=== PATIENT | female | born 1985 | race African-American/Black ===

== ENCOUNTER 2022-09-16 14:43 | Emergency (ER) | payer BC, OTHER ==
[2022-09-16 14:53] VITALS: RESP 18; BMI 34.7
[2022-09-16] MEDS ORDERED: CEFTAZIDIME PENTAHYDRATE 2 GM in DEXTROSE 5%-WATER 100 ML IVPB ONE (17:04)
[2022-09-16] MEDS ORDERED: VANCOMYCIN 1 GM in D5W (PRE-DOCKED) 1,000 MG/250 ML (RESTRICTED TO ID ONLY IVPB ONE (17:05)
[2022-09-16] MEDS ORDERED: cefTAZidime PENTAHYDRATE 2 GM VIAL (RESTRICTED TO ID) ONE (17:07)
[2022-09-16 17:26] LABS: BASO % 0.4 % (0-2.0); EOS % 0.8 % (0-4.5); HEMATOCRIT 36.7 % (32.4-45.2); HEMOGLOBIN 12.1 GM/dL (10.7-15.3); LYMPH % 39.4 % (8-40); MCH 27.9 pg (25.7-33.7); MEAN CELL VOLUME 84.4 fl (80-96); MEAN PLT VOLUME 7.4 fl (7.5-11.1); MONO % 5.4 % (3.8-10.2); PLATELET COUNT 328 10^3/uL (134-434); RBC 4.35 M/mm3 (3.60-5.2); RDW 13.9 % (11.6-15.6); WHITE BLOOD COUNT 7.8 K/mm3 (4.0-10.0)
[2022-09-16] MEDS ORDERED: DIPHTH,PERTUSS(ACELL),TET 0.5 ML DISP.SYRIN IM ONE ×3 (17:42→19:10)
[2022-09-16] MEDS ORDERED: VANCOMYCIN/WATER FOR INJ (PEG) 1,000 MG/200 ML BAG IVPB ONE (17:45)
[2022-09-16 17:58] LABS: POTASSIUM 4.4 mmol/L (3.5-5.1)
[2022-09-16 18:02] LABS: BLOOD UREA NITROGEN 6.2 mg/dL (7-18); CALCIUM 9.7 mg/dL (8.5-10.1)
[2022-09-16] MEDS ORDERED: DALBAVANCIN HCL 1,500 MG in DEXTROSE 5%-WATER - 500 ML IVPB ONE (18:02)
[2022-09-16 18:05] LABS: CREATININE 0.7 mg/dL (0.55-1.3)
[2022-09-16 18:07] LABS: BILIRUBIN,TOTAL 0.6 mg/dL (0.2-1); TOT PROT 7.9 g/dl (6.4-8.2)
[2022-09-16 18:45] LABS: ERYTHROCYTE SEDIMENTATION RATE 26 mm/hr (0-20)
[2022-09-16] MEDS ORDERED: DALBAVANCIN HCL 500 MG VIAL (RESTRICTED TO ID ONLY) IVPB ONE (18:54)
[2022-09-16 20:22] VITALS: BP 142/86; PULSE 92; TEMP 98.9
[2022-09-16] MEDS ORDERED: ACETAMINOPHEN 1000 MG/100 ML BAG IVPB ONE (20:41)
[2022-09-16] MEDS ORDERED: ACETAMINOPHEN INJECTION 100 ML IVPB ONE (20:42)
== END 2022-09-16 21:03 | disposition home or self-care (01) ==
LOC: JER 14:43
PROC: 3E03329 Introduction of Other Anti-infective into Peripheral Vein, Percutaneous Approach (ICD-10-PCS; principal; 2022-09-16)
PROC: 3E03329 Introduction of Other Anti-infective into Peripheral Vein, Percutaneous Approach (ICD-10-PCS; 2022-09-16)
PROC: 3E033NZ Introduction of Analgesics, Hypnotics, Sedatives into Peripheral Vein, Percutaneous Approach (ICD-10-PCS; 2022-09-16)
PROC: 3E0234Z Introduction of Serum, Toxoid and Vaccine into Muscle, Percutaneous Approach (ICD-10-PCS; 2022-09-16)
DX: L03.113 Cellulitis of right upper limb (principal); R22.31 Localized swelling, mass and lump, right upper limb
CPT/HCPCS: 36415; 73130-TC-RT-FY; 80053; 84703; 85025; 85651; 86140; 90715; 99284-25; J0875